=== PATIENT | male | born 1985 | race Caucasian/White ===

== ENCOUNTER 2023-09-06 21:08 | Emergency (ER) | payer SELFPAY ==
[2023-09-06 21:16] VITALS: BP 135/85; PULSE 105; RESP 18; TEMP 36.7; O2SAT 97; BMI 31.6
--- NOTE | 2023-09-06 21:32 | ED.EYEPROB1 ---
HPI - Eye Problem General Chief complaint: Eye Problems Stated complaint: Eye Swelling Time Seen by Provider: 09/06/23 21:27 History of Present Illness HPI Narrative: 38-year-old male presents for bilateral eye irritation and swelling. It started abruptly one hour ago. He had been dragging deer and then hung it up and believes he may have gotten some dust or some other substance into both eyes. It started in the right eye now is in both. Both eyes were swollen and more having some watery drainage. There is no direct trauma. He does not wear glasses or contacts. Symptom is continuous. Related Data Home Medications Medication Instructions Recorded Confirmed bupropion HCl 300 mg 24 hr tablet, mg PO 09/06/23 extended release metformin 500 mg tablet mg 09/06/23 pioglitazone 30 mg tablet mg 09/06/23 Previous Rx's Medication Instructions Recorded ketorolac 0.5 % eye drops (Acular) 1 drp ophthalmic (eye) Q6H 72 09/06/23 hours #5 mL prednisone 20 mg tablet 20 mg PO DAILY #4 tabs 09/06/23 Allergies Allergy/AdvReac Type Severity Reaction Status Date / Time No Known Drug Allergies Allergy Verified 09/06/23 21:23 Review of Systems ROS Narrative A ten point review of systems is negative except as noted above. PFSH PFSH Social History Smoking status: Current every day smoker Exam Narrative Exam Narrative: Nurses note and vital signs reviewed and patient is not hypoxic. General: The patient appears well and in no apparent distress. Patient is resting comfortably on cart. Skin: Warm, dry, no pallor noted. There is no rash noted. Head: Normocephalic, atraumatic Eye: bilateral chemosis present, worse on the right. No obvious foreign body. No purulent drainage. Ears, Nose, Mouth, and Throat: oral mucosa is moist. Nares patent. Cardiovascular: Regular Rate and Rhythm Respiratory: Patient is in no distress, no accessory muscle use Back: non-tender GI: soft and nontender Musculoskeletal: The patient has no evidence of calf tenderness, no pitting edema, symmetrical pulses noted bilaterally Neurological: A&O, normal speech Psychiatric: Cooperative Constitutional Vital Signs, click to edit/add: Last Vital Signs Temp 98.0 F 09/06/23 21:16 Pulse 105 H 09/06/23 21:16 Resp 18 11/03/23 21:16 BP 135/85 09/06/23 21:16 Pulse Ox 97 09/06/23 21:16 O2 Del Method Room Air 09/06/23 21:16 Course Vital Signs Vital signs: Vital Signs Temperature 98.0 F 09/06/23 21:16 Pulse Rate 105 H 09/06/23 21:16 Respiratory Rate 18 09/06/23 21:16 Blood Pressure 135/85 09/06/23 21:16 Pulse Oximetry 97 09/06/23 21:16 Oxygen Delivery Method Room Air 09/06/23 21:16 Temperature 98.0 F 09/06/23 21:16 Pulse Rate 105 H 09/06/23 21:16 Respiratory Rate 18 09/06/23 21:16 Blood Pressure 135/85 09/06/23 21:16 Pulse Oximetry 97 09/06/23 21:16 Oxygen Delivery Method Room Air 09/06/23 21:16 MDM - Eye Problem MDM Narrative Medical decision making narrative: we have flushed his eyes with Tad lens irrigation and he is prescribed Acular and prednisone. My clinical impression is that he has ALLERGIC conjunctivitis. Antibiotic drops are not indicated. Treatment diagnosis and follow up are discussed with the patient. Differential Diagnosis Differential diagnosis: Likely corneal abrasion, conjunctivitis, subconjunctival hemorrhage, corneal ulcer and other (foreign body) Discharge Plan Discharge Chief Complaint: Eye Problems Clinical Impression: Acute allergic conjunctivitis of both eyes Patient Disposition: Home, Self-Care Time of Disposition Decision: 22:13 Condition: Good Mode of Transportation: Private Vehicle Prescriptions / Home Meds: New prednisone 20 mg tablet 20 mg PO DAILY Qty: 4 0RF ketorolac [Acular] 0.5 % drops 1 drp ophthalmic (eye) Q6H 3 Days Qty: 5 0RF Rx Instructions: Each eye No Action metformin 500 mg tablet pioglitazone 30 mg tablet bupropion HCl 300 mg tablet extended release 24 hr PO Instructions: Conjunctivitis (ED) Stand Alone Forms: Portal Instructions Referrals: ULYSSES MILLAN [Primary Care Provider] - 1 week
[2023-09-06] MEDS: PREDNISONE 20 MG TABLET 40 MG PO (21:51)
[2023-09-06] MEDS: DIPHENHYDRAMINE HCL 25 MG CAPSULE 50 MG PO (21:51)
[2023-09-06] MEDS: SODIUM CHLORIDE 0.9% IRRIG SOLUTION 1,000 ML BOTTLE 1000 ML IRR (21:52)
[2023-09-06] MEDS: TETRACAINE HCL 0.5% OP SOL 80 DROP/4 ML BOTTLE OP (21:52)
--- NOTE | 2023-09-06 22:34 | PC.NURSE ---
Some decrease in swelling and redness after irrigation.
== END 2023-09-06 22:44 | disposition home or self-care (01) ==
PROVIDERS: Emergency Provider Emergency Medicine; PCP Family Medicine
DX: H10.13 Acute atopic conjunctivitis, bilateral (principal); Z79.84 Long term (current) use of oral hypoglycemic drugs; Z79.899 Other long term (current) drug therapy; F17.210 Nicotine dependence, cigarettes, uncomplicated
CPT/HCPCS: 99283